=== PATIENT | male | born 1980 | race Caucasian/White ===

== ENCOUNTER 2021-06-02 22:37 | Emergency (ER) | payer OTHER ==
[2021-06-03 00:21] LABS: BASOPHIL 0.8 % (0-2); BILIRUBIN NEGATIVE (NEGATIVE); BLOOD TRACE-INTACT Ery/uL (NEGATIVE); CLARITY CLEAR (CLEAR); COLOR YELLOW (YELLOW); EOSINOPHIL 2.3 % (0-5); GLUCOSE (U) 3+ mg/dL (NORMAL); HCT 41.2 % (42.0-52.0); HGB 14.3 g/dl (13.2-18.0); LEUKOCYTES NEGATIVE Leu/uL (NEGATIVE); LYMPHOCYTE 30.3 % (15-48); MCH 30.7 pg (25.0-31.0); MCHC 34.7 g/dL (32.0-36.0); MCV 88.4 fL (78.0-100.0); MONOCYTE 5.7 % (0-12); NEUTROPHIL 60.5 % (41-80); NITRITE NEGATIVE (NEGATIVE); NRBC 0; PLT 274 K/uL (150-400); PROTEIN NEGATIVE (NEGATIVE); RBC 4.66 M/uL (4.70-6.00); RDW 13.3 % (11.5-14.0); UROBILINOGEN 0.2 mg/dL (0.2-1.0); WBC 10.3 K/uL (4.0-10.5)
[2021-06-03 00:33] LABS: MUCOUS MODERATE; URINARY RBC RARE; URINARY WBC RARE
[2021-06-03 00:44] LABS: ALBUMIN 3.5 g/dL (3.4-5.0); BILIRUBIN - TOTAL 0.5 mg/dL (0.2-1.0); BUN/CREAT RATIO (CALC) 21.4 RATIO; CREATININE 0.84 mg/dL (0.67-1.17); GLOBULIN (CALCULATION) 4.4 g/dL; POTASSIUM 4.4 mmol/L (3.5-5.1); TOTAL PROTEIN 7.9 g/dL (6.4-8.2)
[2021-06-03] MEDS ORDERED: METFORMIN HCL500 MG PO (05:19)
== END 2021-06-03 05:37 | disposition home or self-care (01) ==
LOC: FER 22:37
PROVIDERS: Internal Medicine
DX: E11.9 Type 2 diabetes mellitus without complications (principal)
CPT/HCPCS: 36415; 80053; 81001; 83036; 85025; J7030